=== PATIENT | male | born 1985 | race Asian ===

== ENCOUNTER 2017-04-18 01:51 | Emergency (ER) | payer OTHER ==
[~2017-04-18] VITALS: Ht 167.6 cm; Wt 81.5 kg
[~2017-04-18 01:51] MED LIST: NOCURR
[2017-04-18 02:08] VITALS: BP 124/80
[2017-04-18] MEDS ORDERED: FAMOTIDINE 20 MG TABLET PO ONE (02:15)
[2017-04-18] MEDS ORDERED: PredniSONE 20 MG TABLET PO ONE (02:15)
[2017-04-18] MEDS ORDERED: DiphenhydrAMINE HCL 25 MG CAPSULE PO ONE (02:15)
== END 2017-04-18 02:50 | disposition home or self-care (01) ==
LOC: EMS 01:52
DX: L50.9 Urticaria, unspecified (principal); F17.210 Nicotine dependence, cigarettes, uncomplicated
CPT/HCPCS: 99284; J7512